=== PATIENT | male | born 1955 | race Caucasian/White ===

== ENCOUNTER 2017-11-24 07:34 | Day surgery (SDC) | payer OTHER ==
[2017-11-24] MEDS ORDERED: MIDAZOLAM 1 MG/ML 2 ML INJ ×2 (11:14→11:15)
[2017-11-24] MEDS ORDERED: FENTAnyl 50 MCG/ML VIAL (11:14)
== END 2017-11-24 13:32 | disposition home or self-care (01) ==
LOC: GIL 07:34
DX: Z12.11 Encounter for screening for malignant neoplasm of colon (principal); D12.6 Benign neoplasm of colon, unspecified; K64.8 Other hemorrhoids
CPT/HCPCS: 45380; 88305